=== PATIENT | male | born 2000 | race Two or more races ===

== ENCOUNTER 2024-06-11 07:01 | Emergency (ER) | payer MEDICAID, OTHER ==
[~2024-06-11] VITALS: Ht 182.9 cm; Wt 97.2 kg
--- NOTE | 2024-06-11 07:39 | ED.PDOC ---
Musculoskeletal HPI Comments A 24 YEAR OLD MALE PRESENTS TO THE ED WITH COMPLAINT OF LEFT HIP PAIN. PATIENT STATES HE HAS BEEN EXPERIENCING LEFT HIP PAIN THAT RADIATES DOWN HIS LEFT LEG THAT STARTED YESTERDAY NIGHT. PATIENT NOTES HE HAS A HISTORY OF A LEFT HIP FRACTURE THAT OCCURRED 8 YEARS AGO. PATIENT DENIES ANY NEW INJURY AT THIS TIME. PATIENT DENIES SADDLE ANESTHESIA, URINARY INCONTINENCE, BOWEL INCONTINENCE, FALL INJURY, FEVER, CHILLS, SHORTNESS OF BREATH, CHEST PAIN, ABDOMINAL PAIN, NAUSEA, VOMITING, HEADACHE, OR OTHER COMPLAINTS. NO OTHER SYMPTOMS OR MODIFYING FACTORS AT THIS TIME. PATIENT IS ALERT, ORIENTED X 4, AND HAS STEADY GAIT. Chief Complaint: Lower Extremity Time Seen by MD: 07:21 Reviewed Notes: Nurses Notes, Medications, Allergies Home Meds Active Scripts Hydrocodone-Acetaminophen (Hydrocodone Bitartrate/AC 10-325 mg) 1 Tab Tab, 1 TAB PO BID, #14 TAB Prov:NINO MARTÍNEZ 06/11/24 Information Source: Patient Mode of Arrival: Wheelchair Location: Left Extremity Location: Hip Timing: Hours Prehospital treatment: None Severity: Moderate Able to Move Extremity: Yes Bear Weight: Limited Pain: Moderate Mechanism: Spontaneous Circumstances: Spontaneous Onset of Symptoms: Spontaneous Symptoms: Pain DVT Risk Factors: NONE Last Tetanus: Unknown Associated signs and symptoms: Hip pain Past Medical History PAST MEDICAL HISTORY: Denies Surgical History (Other): LEFT HIP SURGERY Family History Family History: Reviewed,noncontributory to illness Social History Smoker: Non-Smoker Alcohol: Denies ETOH Use Drugs: Denies Drug Use Lives In: Home Constitutional: denies: chills, diaphoresis, fatigue, fever, malaise, sweats, weakness, others EENTM: denies: blurred vision, double vision, ear bleeding, ear discharge, ear drainage, ear pain, ear ringing, eye pain, eye redness, hearing loss, mouth pain, mouth swelling, nasal discharge, nose bleeding, nose congestion, nose pain, photophobia, tearing, throat pain, throat swelling, voice changes, others Respiratory: denies: cough, hemoptysis, orthopnea, SOB at rest, shortness of breath, SOB with excertion, stridor, wheezing, others Cardiovascular: denies: chest pain, dizzy spells, diaphoresis, Dyspnea on exertion, edema, irregular heart beat, left arm pain, lightheadedness, palpitations, PND, syncope, others Gastrointestinal: denies: abdomen distended, abdominal pain, blood streaked bowels, constipated, diarrhea, dysphagia, difficulty swallowing, hematemesis, melena, nausea, poor appetite, poor fluid intake, rectal bleeding, rectal pain, vomiting, others Genitourinary: denies: burning, dysuria, flank pain, frequency, hematuria, incontinence, penile discharge, penile sore, pain, testicle pain, testicle swelling, urgency, others Neurological: denies: dizziness, fainting, headache, left sided numbness, left sided weakness, numbness, paresthesia, pre-existing deficit, right sided n umbness, right sided weakness, seizure, speech problems, tingling, tremors, weakness, others Musculoskeletal: reports: joint pain, others (LEFT HIP PAIN THAT RADIATES DOWN LEFT LEG); denies: back pain, gout, joint swelling, muscle pain, muscle stiffness, neck pain Integumetry: denies: bruises, change in color, change in hair/nails, dryness, laceration, lesions, lumps, rash, wounds, others Allergic/Immunocompromised: denies: Difficulty Healing, Frequent Infections, Hives, Itching, others Hematologic/Lymphatic: denies: anemia, blood clots, easy bleeding, easy bruising, swollen glands, others Endocrine: denies: excessive hunger, excessive sweating, excessive thirst, excessive urination, flushing, intolerance to cold, intolerance to heat, unexplained weight gain, unexplained weight loss, others Psychiatric: denies: anxiety, bipolar disorder, depression, hopeless, panic disorder, schizophrenia, sleepless, suicidal, others All Other Systems: Reviewed and Negative Physical Exam General Appearance: No Apparent Distress, Normal HEENT: Normal ENT Inspection, PERRL/EOMI, Pharynx Normal, TMs Normal Neck: Full Range of Motion, Non-Tender, Normal, Normal Inspection Respiratory: Chest Non-Tender, Lungs Clear, No Accessory Muscle Use, No Respiratory Distress, Normal Breath Sounds Cardiovascular: No Edema, No JVD, No Murmur, No Gallop, Normal Peripheral Pulses, Regular Rate/Rhythm Breast Exam: Deferred Gastrointestinal: No Organomegaly, Non Tender, No Pulsatile Mass, Normal Bowel Sounds, Soft Genitalia: Deferred Pelvic: Deferred Rectal: Deferred Extremities: Decreased range of motion, No calf tenderness, Normal capillary refill, Normal inspection, No pedal edema, Tender (LEFT HIP, NO BONY TENDERNESS, REDNESS, SWELLING AND DEFORMITY. ) Musculoskeletal : Apperance: Normal Neurologic: Alert, review coordinator II-XII nml as Tested, No Motor Deficits, Normal Affect, Normal Mood, No Sensory Deficits Cerebellar Function: Normal Reflexes: Normal Skin: Dry, Normal Color, Warm Peripheral Pulses: 2+ carotid (R), 2+ carotid (L), 2+ dorsalis pedis (R), 2+ dorsalis pedis (L) Lymphatic: No Adenopathy Was a procedure done? Was a procedure done?: No Differential Diagnosis EXT Differential Diagnosis: Fracture, Sprain, Dislocation, Contusion, Strain, Bursitis X-Ray, Labs, Meds, VS Vital Signs Date Time Temp Pulse Resp B/P (MAP) Pulse Ox O2 Delivery O2 Flow Rate FiO2 06/11/24 07:51 104 18 97 Room Air 06/11/24 07:51 97.9 104 18 154/70 (98) 97 97.9 06/11/24 07:34 97.9 10 18 154/70 (98) 97 Current Medications Medications (Trade) Dose Ordered Sig/Nicole Route Start Time Stop Time Status Last Admin Ketorolac Tromethamine (Toradol Injection) 60 mg ONCE ONCE IM 06/11/24 07:45 06/11/24 07:46 DC 06/11/24 07:44 Acetaminophen/ Hydrocodone Bitart ([place] 10/325MG Tab) 1 tab ONCE ONCE PO 06/11/24 08:30 06/11/24 08:31 DC 06/11/24 08:45 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 No acute fracture or dislocation. ATED BY: MARTÍNEZ MCGILL MD DICTATED DATE/TIME: 06/11/24833 SIGNED BY: MARTÍNEZ MCGILL MD SIGNED DATE/TIME: 06/11/24833 CC: CT CT L HIP WITH OUT CONTRAST INDICATION: PAIN, NO INJURY, HX OF LEFT HIP INJURY 8 YEARS AGO EXAM DATE: 06/11/2024 08:28 AM COMPARISON: None RADIATION DOSE: CTDIvol: 32.8 mGy, DLP: 797.7 mGy*cm PROCEDURE: Helical CT images were obtained of the left hip without intravenous contrast. Sagittal and coronal reconstructions are provided. ADDITIONAL IMAGES: None FINDINGS: BONES: No acute fracture. Osseous deformity of the left femoral head with subchondral cysts, sclerosis and osteophyte formation. JOINT SPACES: Degenerative and irregular left hip joint space with osseous loose body. SOFT TISSUES: within normal limits. VESSELS: unremarkable. IMPRESSION: No acute hip fracture. Osseous deformity of the left femoral head with subchondral cysts, sclerosis and osteophyte formation. Degenerative and irregular left hip joint space with osseous loose body. ATED BY: ROMARIO TIPTON MD DICTATED DATE/TIME: 06/11/24931 SIGNED BY: ROMARIO TIPTON MD SIGNED DATE/TIME: 06/11/24931 CC: X-Ray, Labs, Meds, VS Comment TREATMENT: TORADOL 60 MG IM, NORCO 10/325 MG P.O. CRUTCHES SINCE THE PATIENT'S X-RAY AND CT SCAN RESULTS ONLY REVEAL CHRONIC DEGENERATIVE CHANGE AND DEFORMITY AND NO ACUTE FRACTURES/INJURIES, I HAVE DETERMINED THE PATIENT IS SAFE TO DISCHARGE AT THIS TIME. PATIENT WILL BE PRESCRIBED NORCO 5/325 MG AND I HAVE INSTRUCTED THE PATIENT TO FOLLOW UP WITH HIS PCP IN 1-2 DAYS. Images Reviewed?: Images reviewed and evaluated by me Time of 1ST Reevaluation: 10:00 Reevaluation 1ST: Improved Patient Education/Counseling: Diagnosis, Treatment, Need For Follow Up Family Education/Counseling: Diagnosis, Treatment, Need For Follow Up Medical Screening: No EMC Exist At This Time Departure 1 Departure Time of Disposition: 10:00 Impression: Primary Impression: Degenerative joint disease of left hip Qualified Codes: M16.12 - Unilateral primary osteoarthritis, left hip Additional Impression: Chronic left hip pain Disposition: 01 HOME / SELF CARE / HOMELESS Condition: Stable Additional Instructions: FOLLOW-UP WITH PCP IN 1 TO 2 DAYS FOR MRI STUDY. TAKE MEDICATIONS PRESCRIBED. RETURN TO ED FOR ANY NEW OR WORSENING SYMPTOMS. e-Prescriptions Hydrocodone-Acetaminophen (Hydrocodone Bitartrate/AC 10-325 mg) 1 Tab Tab 1 TAB PO BID, #14 TAB Prov: NINO MARTÍNEZ 06/11/24 Discharged With: Self Critical Care Note Critical Care Time?: No Stability Stability form required: No I personally scribed for NINO MARTÍNEZ ([email or web address]) on 06/11/24 at 09:41. Electronically submitted by Melchor Haynes ([email or web address]). NINO MARTÍNEZ Jun 11, 2024 07:39
[2024-06-11] MEDS: KETOROLAC TROMETH 60MG/2ML VIAL IM ONE (07:44)
[2024-06-11 07:51] VITALS: BP 154/70; PULSE 104; RESP 18; TEMP 97.9; O2SAT 97
--- NOTE | 2024-06-11 08:38 | DVH ---
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 No acute fracture or dislocation.
[2024-06-11] MEDS: HYDROcodone-ACET 10/325MG TAB PO ONE (08:45)
--- NOTE | 2024-06-11 09:34 | DVH ---
CT CT L HIP WITH OUT CONTRAST INDICATION: PAIN, NO INJURY, HX OF LEFT HIP INJURY 8 YEARS AGO EXAM DATE: 06/11/2024 08:28 AM COMPARISON: None RADIATION DOSE: CTDIvol: 32.8 mGy, DLP: 797.7 mGy*cm PROCEDURE: Helical CT images were obtained of the left hip without intravenous contrast. Sagittal an d coronal reconstructions are provided. ADDITIONAL IMAGES: None FINDINGS: BONES: No acute fracture. Osseous deformity of the left femoral head with subchondral cysts, sclerosi s and osteophyte formation. JOINT SPACES: Degenerative and irregular left hip joint space with osseous loose body. SOFT TISSUES: within normal limits. VESSELS: unremarkable. IMPRESSION: No acute hip fracture. Osseous deformity of the left femoral head with subchondral cysts, sclerosis a nd osteophyte formation. Degenerative and irregular left hip joint space with osseous loose body.
[2024-06-11] MEDS ORDERED: HYDR-4798 PO (09:48)
== END 2024-06-11 09:58 | disposition home or self-care (01) ==
LOC: ER 07:01
DX: M16.12 Unilateral primary osteoarthritis, left hip (principal); M25.552 Pain in left hip; Z98.890 Other specified postprocedural states
CPT/HCPCS: 73502; 73700; 96372; 99285; J1885